=== PATIENT | female | born 1995 | race Caucasian/White ===

== ENCOUNTER → 2021-12-17 09:30 | Outpatient (BNVA) | payer SELFPAY | PROVIDERS: Visit Provider Physician Assistant | DX: Z02.1 Encounter for pre-employment examination (principal) ==

== ENCOUNTER 2024-08-27 09:42 | Outpatient (AMB) | payer OTHER, SELFPAY ==
--- NOTE | 2024-08-27 10:25 | A.OFFPC_ITS ---
Vital Signs 08/27/24 10:37 Height 5 ft 1.22 in Weight 102 lb 6 oz BMI 19.2 BP 90/64 Blood Pressure Location Rt brachial Position Sitting Respiration 12 Pulse 60 Pulse Source Pulse Oximeter Pulse Oximetry (%) 97 Oxygen Delivery Method Room Air Intake Visit Reasons: Est. Care Intake Note: New patient visit Director Dental Services Required: No Allergies amoxicillin Allergy (Unknown, Verified 08/27/24 10:29) Hives Tobacco use date assessed: 08/27/24 Dental Screening Dental Screen Date: 08/27/24 Did you have a dental visit in the last 12 months?: Yes Did you have a dental problem in the last 6 months where you did not have access to dental care?: No Was dental information given to patient?: Patient has dentist HPI HPI Comments History of Present Illness Details The patient is a 29-year-old female presenting with concerns of weight loss and anxiety. She is a new patient. She relocated from [facility] 3 years ago. She lives with her girlfriend and her 8-year-old son. Over the past two years, the patient has experienced a clinically significant weight loss from 146 pounds to a fluctuating weight of approximately 106 pounds. The patient endorsses a diminished appetite, requiring self-inducement to eat routine meals, which leads to irregular eating patterns. She has no dietary restrictions. She denies any related gastrointestinal symptoms such as nausea, abdominal pain, vomiting, or diarrhea and has no known family history of celiac disease or other significant gastrointestinal disorders. Menstrual periods are regular, once per month, lasting 3-5 days. She drinks alcohol once a week soci ally. She does not binge drink. She vapes, and she does not smoke marijuana or use illicit drugs. The patient also reports a longstanding history of anxiety, beginning in her late teenage years and describes episodes of intense anxiety and feeling overwhelmed which causes her to faint. These episodes involve symptoms of marked shakiness, tingling in her extremities and difficulty breathing and finally seeing black spots in her vision before she faints. While she reports the last syncope episode occurred approximately one year ago, she continues to experience near-daily sensations of heightened anxiety and stress. She endorses irritability, mental fatigue, difficulty staying asleep and also wonders if her appetite is related to this. 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 Patient says there is no specific 1 thing that makes her anxious. She always pictures the worse case scenarios happening on a daily basis. Her girlfriend is very supportive, and she has a good relationship with her son. She has never seen a therapist or been treated with anxiety medication. Though her PHQ-9 is positive, this is mostly related to her lack of sleep and fatigue, and she denies feeling depressed and denies SI or HI. Regarding syncopal episodes, patient had multiple ER visits reported in [place]. Patient fainted 1 time striking her head on a stone which resulted in a seizure, but she has no history of seizures otherwise. Patient says the only thing that came up as part of her workup was that she has a low heart rate in the 50s and 60s usually. Patient reports having CT scans, MRI of the head, echocardiogram, EKGs and consults with Cardiology and Neurology, and they told her that everything was okay. Patient was informed and verbally consented to the use of an ambient scribe for clinic note documentation during this visit. ROS: Constitutional: No fevers, chills or night sweats. +fatigue and weight loss as above. Eyes: No vision changes, blurry vision, double vision, eye pain, eye redness, eye discharge. Respiratory: No cough or shortness of breath (except during episodes described above) Cardiovascular: No chest pain, chest pressure or chest discomfort. No palpitations or pedal edema. Gastrointestinal: No anorexia, nausea, vomiting or diarrhea. No abdominal pain or blood in stool. No acid reflux. Genitourinary: No dysuria, hematuria, urinary frequency. Neurologic: No headache, unilateral weakness, ataxia, numbness or tingling in the extremities. No memory loss. See HPI. Hematologic/Lymphatics: No bleeding or bruising. No painful lymph nodes. Skin: No rash or itching. Endocrine: No cold or heat intolerance. No polyuria or polydipsia. Psychiatric: See HPI. Denies impulsivity and hallucinations. Physical exam: Constitutional: Alert, in no distress. Eyes: Pupils are equal, round and reactive to light. Extraocular muscles intact. Neck: Supple, Full range of motion. No lymphadenopathy. No palpable thyroid masses. Respiratory: Clear to auscultation. Cardiovascular: S1 S2 regular. No murmurs. Gastrointestinal: Abdomen soft, non-tender, non-distended. Normal bowel sounds. No palpable masses. Neurologic: No focal neurological deficits. Symmetric patellar reflexes. Moves all extremities spontaneously. Sensation intact bilaterally. Skin: No rashes Extremities: Warm and well perfused. No clubbing, cyanosis or edema. Symmetric peripheral pulses bilaterally. Psychiatric: Normal mood and affect [facility] Medical History (Updated 08/27/24 @ 11:38 by REINA Grewal) Sinus bradycardia Syncope Problems related to lack of adequate sleep Weight loss Anxiety Surgical History (Updated 08/27/24 @ 10:36 by Lila Moralez CMA) H/O section Family History Maternal Grandmother FH: mental illness Paternal Grandmother Diabetes Heart disease Paternal Grandfather Diabetes Heart disease Paternal Aunt Diabetes Paternal Uncle Diabetes Father Heart disease Social History (Updated 08/27/24 @ 10:33 by Lila Moralez CMA) Housing: Other ([facility]) Alcohol intake: current Patient Tobacco Use Status: Never used Tobacco e-Cigarette/Vaping Use: Currently Using (vaping 3 years) Second Hand Smoke Exposure: No Substance Use Type: Former Substance User and Marijuana service: No Current occupational status: employed Current occupation: Works with autistic adults Current occupational exposures/hazards: No Cognitive needs: No Hearing needs: No Vision needs: Yes (glasses) Questionnaire PHQ-9 Over the last 2 weeks, how often have you been bothered by any of the following problems? 1. Little interest or pleasure in doing things: not at all 2. Feeling down, depressed, or hopeless: several days 3. Trouble falling or staying asleep, or sleeping too much: more than half the days 4. Feeling tired or having little energy: nearly every day 5. Poor appetite or overeating: nearly every day 6. Feeling bad about yourself - or that you are a failure or have let yourself or your family down: nearly every day 7. Trouble concentrating on things, such as reading the newspaper or watching television: not at all 8. Moving or speaking so slowly that other people could have noticed. Or the opposite - being so fidgety or restless that you have been moving around a lot more than usual: not at all 9. Thoughts that you would be better off or of hurting yourself in some way: not at all Total score: 12 Depression Screening Interpretation: Positive Depression Screening Follow-up: Follow-up Visit Requested Depression Screening Done: Yes 47405 - PHQ-9 Billing: Yes Source: Developed by Drs. Derrell Duran, Tulio Jurado and colleagues, with an educational lona from [employer]. Thrive Questionnaire Date Thrive assessed: 08/27/24 I am a: Patient What is your living situation today?: I have a steady place to live Do you have trouble paying for medicines?: No Do you have trouble getting transportation to medical appointments?: No Do you have trouble paying your heating and electricity bill?: No Do you have trouble taking care of your child, family member or friend?: No Do you have trouble with day-to-day activities such as bathing, preparing meals, shopping, managing finances, etc.?: No Are you currently unemployed and looking for a job?: No Are you interested in more education?: No Please select the resources that you would like help with: None THRIVE Score: 0 AUDIT C Alcohol Use Questionnaire (AUDIT-C) 1. How often do you have a drink containing alcohol?: Monthly or less 2. How many drinks containing alcohol do you have on a typical day when you are drinking?: 1 or 2 3. How often do you have six or more drinks on one occasion?: Never Total Score: 1 VENKATA-7 AMB Questionnaire VENKATA-7 Date VENKATA - 7 assessed: 08/27/24 Feeling nervous, anxious, or on edge: 2 = More than half the days Not being able to stop or control worryin = Nearly every day Worrying too much about different things: 3 = Nearly every day Trouble relaxin = Several days Being so restless that it is hard to sit still: 0 = Not at all Becoming easily annoyed or irritable: 3 = Nearly every day Feeling afraid as if something awful might happen: 2 = More than half the days Total VENKATA-7 score (0-4 normal; 5-9 mild; 10-14 moderate; 15-21 severe): 14 Source: Developed by Drs. Derrell Duran, Tulio Jurado and colleagues, with an educational lona from [employer]. VENKATA-7 Assessment Billing VENKATA-7 Assessment Tool: VENKATA-7 Assessment 02243 Physical exam (Primary Care) Vital Signs: Last Vital Signs Resp 12 08/27/24 10:37 BP 90/64 08/27/24 10:37 BMI result Body Mass Index 19.2 Tobacco/Smoking Status: Tobacco use Status Tobacco use date assessed 08/27/24 08/27/24 10:28 Patient Tobacco Use Status Never used Tobacco 08/27/24 10:33 e-Cigarette/Vaping Use Currently Using (vaping 3 08/27/24 10:35 years) Depression Screening Interpretation: Positive Depression Screening Follow-up: Follow-up Visit Requested Thrive Assessment: Date of Thrive Assessment Date Thrive assessed 08/27/24 08/27/24 10:39 Office Procedures EKG Details: EKG shows sinus bradycardia with a ventricular rate of 51 beats per minute and no ischemic changes 20357-[id number], Complete Coding Level of Care Code New Pt Level 4 (80592) Complex EM visit Add On G2211 Diagnoses Anxiety F41.9 Weight loss R63.4 Problems related to lack of adequate sleep Z72.820 Syncope, unspecified syncope type R55 Syncope type: unspecified CPT Codes EKG - CPT: 18271-[id number], Complete ([id number]) Additional Codes VENKATA-7 Assessment Billing - VENKATA-7 Assessment Tool: VENKATA-7 Assessment 70257 ([id number]) PHQ-9 - 18578 - PHQ-9 Billing: Yes ([id number]) Assessment & Plan Assessment & Plan (1) Anxiety: Code(s): F41.9 - Anxiety disorder, unspecified Category: Medical (2) Weight loss: Code(s): R63.4 - Abnormal weight loss Category: Medical (3) Problems related to lack of adequate sleep: Code(s): Z72.820 - Sleep deprivation Category: Social Hx (4) Syncope: Code(s): R55 - Syncope and collapse Category: Medical Qualifiers: Syncope type: unspecified Qualified Code(s): R55 - Syncope and collapse Plan In summary this is a 29-year-old female with concerns of anxiety and weight loss. Her anxiety questionnaire and clinical history are suggestive of generalized anxiety disorder. Patient reports having extensive workup for syncopal episodes which are only brought on by severe anxiety and what sounds like panic attacks and vasovagal syncope. She reports weight loss with no GI symptoms which may also be related to VENKATA. We discussed this today. She would like to try therapy, and I referred her to Psychology. We briefly discussed medications. She would like to come back in a week to discuss anxiety medications further. She will also have lab work for evaluation of her symptoms. We will consider referral to Gastroenterology. 1. Weight loss: A comprehensive approach is essential to address the considerable weight loss and reduced appetite, including metabolic evaluations for thyroid and nutritional deficiencies, alongside dietary support and consideration of nutritional supplements. 2. Anxiety disorder with possible vasovagal syncope: A referral for mental health counseling is indicated to aid in managing anxiety that is likely contributing to vasovagal episodes. Exploration into pharmacological interventions for anxiety may be beneficial pending further discussions. 3. Syncope episodes: Monitoring continues as past evaluations showed normal results, with readiness to initiate new workup upon any change in frequency or type of occurrence. Advised patient to sign release for medical records. Follow up in 1 week to review labs. Orders: Orders Ferritin Today F41.9 - Anxiety disorder, unspecified, R63.4 - Abnormal weight loss, Z72.820 - Sleep deprivation Lipase Today F41.9 - Anxiety disorder, unspecified, R63.4 - Abnormal weight loss, Z72.820 - Sleep deprivation TSH reflex Free T4 Today F41.9 - Anxiety disorder, unspecified, R63.4 - Abnormal weight loss Endomysial IgA rflx Titer Today F41.9 - Anxiety disorder, unspecified, R55 - Syncope and collapse, R63.4 - Abnormal weight loss, Z72.820 - Sleep deprivation Immunoglobulin A Today F41.9 - Anxiety disorder, unspecified, R55 - Syncope and collapse, R63.4 - Abnormal weight loss, Z72.820 - Sleep deprivation Vitamin D 25-OH (D2 and D3) Today F41.9 - Anxiety disorder, unspecified, R55 - Syncope and collapse, R63.4 - Abnormal weight loss Vitamin B12 Today F41.9 - Anxiety disorder, unspecified, R63.4 - Abnormal weight loss, Z72.820 - Sleep deprivation, Z91.89 - Other specified personal risk factors, not elsewhere classified IRON PROFILE Today F41.9 - Anxiety disorder, unspecified, R63.4 - Abnormal weight loss, Z72.820 - Sleep deprivation Lipid Panel Today E78.5 - Hyperlipidemia, unspecified, F41.9 - Anxiety disorder, unspecified, R63.4 - Abnormal weight loss, Z72.820 - Sleep deprivation Comprehensive Met. Panel Today F41.9 - Anxiety disorder, unspecified, R63.4 - Abnormal weight loss, Z72.820 - Sleep deprivation Complete Blood Count Auto Diff Today F41.9 - Anxiety disorder, unspecified, R63.4 - Abnormal weight loss, Z72.820 - Sleep deprivation Amylase Today F41.9 - Anxiety disorder, unspecified, R63.4 - Abnormal weight loss, Z72.820 - Sleep deprivation AMB EKG-In Office Today R55 - Syncope and collapse Transglutaminase Ab IgG Today F41.9 - Anxiety disorder, unspecified, R55 - Syncope and collapse, R63.4 - Abnormal weight loss, Z72.820 - Sleep deprivation Referrals Psychology Referral F41.9 - Anxiety disorder, unspecified
[2024-08-27 10:37] VITALS: BP 90/64; PULSE 60; RESP 12; O2SAT 97; BMI 19.2
== END 2024-08-27 11:33 | disposition home or self-care (01) ==
LOC: HO.HMCFM 09:42
PROVIDERS: PCP Physician Assistant Medical; Visit Provider Physician Assistant Medical
DX: F41.9 Anxiety disorder, unspecified (principal); R63.4 Abnormal weight loss; Z72.820 Sleep deprivation; R55 Syncope and collapse

== ENCOUNTER → 2024-08-27 09:42 | Outpatient (BNVA) | payer OTHER, SELFPAY | PROVIDERS: PCP Physician Assistant Medical; Visit Provider Physician Assistant Medical | DX: F41.9 Anxiety disorder, unspecified (principal); R63.4 Abnormal weight loss; R55 Syncope and collapse; E78.5 Hyperlipidemia, unspecified; Z72.820 Sleep deprivation | CPT/HCPCS: 93005; 96127; 99202 ==

== ENCOUNTER 2024-08-28 08:12 | Outpatient (REF) | payer OTHER, SELFPAY ==
[2024-08-28 11:22] LABS: MANUAL DIFF FLAG NO
[2024-08-28 11:31] LABS: Basophils Percent Auto 0.4 % (0-2); Eosinophils Absolute Auto 0.2 X10*3/uL (0.0-0.4); Eosinophils Percent Auto 2.9 % (0-4); Hematocrit 39.3 % (37.0-47.0); Hemoglobin 13.4 g/dl (12.0-16.0); Imm Gran Abs Auto 0.02 X10*3/uL (0.00-0.03); Imm Gran Pct Auto 0.4 % (0.0-0.4); Lymphocytes Absolute Auto 1.7 X10*3/uL (1.2-4.9); Lymphocytes Percent Auto 31.8 % (20-40); Mean Corpuscular HGB Conc 34.1 g/dl (31.0-35.0); Mean Corpuscular Volume 87.9 fL (80.0-98.0); Mean Platelet Volume 9.7 fL (9.4-12.3); Monocytes Absolute Auto 0.3 X10*3/uL (0.1-1.2); Monocytes Percent Auto 5.9 % (2-11); Neutrophils Absolute Auto 3.2 x10*3/uL (2.0-8.3); Neutrophils Percent Auto 58.6 % (45-73); Platelet Count 362 X10*3/uL (160-400); Red Blood Count 4.47 X10*6/uL (4.20-5.50); Red Cell Distribution Width 12.3 % (11.0-16.0); White Blood Count 5.4 X10*3/uL (4.8-10.8)
[2024-08-28 12:24] LABS: Vitamin B12 778 pg/mL (200-900)
[2024-08-28 12:30] LABS: Alanine Aminotransferase 10 U/L (0-31); Albumin Level 4.3 g/dL (3.5-5.0); Alkaline Phosphatase 61 U/L (39-117); Amylase 55 U/L (28-100); Anion Gap 9 (12-20); Aspartate Amino Transferase 24 U/L (5-31); Bilirubin Total 0.6 mg/dL (0.0-1.0); Blood Urea Nitrogen 13 mg/dL (9-16); Calcium 9.2 mg/dL (8.4-10.2); Carbon Dioxide 26 mmol/L (22-29); Chloride 108 mmol/L (96-108); Cholesterol 129 mg/dL (<200); Estimated Glomerular Filt Rate > 60; Ferritin 110 ng/mL (10-122); Glucose Random 76 mg/dL (60-115); HDL Cholesterol 46 mg/dL (>40); Iron 82 mcg/dL (30-160); LDL Cholesterol Calculated 74 mg/dL (<100); Lipase 16 U/L (8-78); Percent Iron Saturation 35 % (15-50); Potassium 3.8 mmol/L (3.3-5.1); Sodium 139 mmol/L (135-145); Total Iron Binding Capacity 237 mcg/dL (228-428); Total Protein 7.7 g/dL (6.5-8.0); Triglycerides 47 mg/dL (<150); Unsaturated Iron Binding 155 ug/dL
[2024-08-29 09:08] LABS: Immunoglobulin A 419 mg/dL (47-310)
[2024-08-29 21:43] LABS: Transglutaminase Ab IgG <1.0 U/mL
[2024-08-31 22:19] LABS: Endomysial IgA Antibody Negative (Negative)
[2024-09-01 15:34] LABS: Vitamin D 25-OH, D2 <4 ng/mL; Vitamin D 25-OH, D3 15 ng/mL; Vitamin D 25-OH, Total 15 ng/mL (30-100)
== END 2024-08-28 08:13 | disposition home or self-care (01) ==
LOC: HO.WFDLDS 08:12
PROVIDERS: Visit Provider Physician Assistant Medical
DX: R63.4 Abnormal weight loss (principal)
CPT/HCPCS: 36415; 80053; 80061; 82150; 82306; 82607; 82728; 82784; 83540; 83690; 84443; 85025; 86231; 86364

== ENCOUNTER 2024-09-06 09:02 | Outpatient (AMB) | payer OTHER, SELFPAY ==
--- NOTE | 2024-09-06 10:14 | MHC.PC.OV ---
Vital Signs 09/06/24 10:21 Height 5 ft 1 in Weight 104 lb 4 oz BMI 19.7 BP 100/62 Blood Pressure Location Rt brachial Position Sitting Respiration 12 Pulse 64 Pulse Source Pulse Oximeter Pulse Oximetry (%) 98 Intake Visit Reasons: follow up labs Intake Note: Tesha presents in the office today to go over her lab results. [employer] Required: No Allergies amoxicillin Allergy (Unknown, Verified 09/06/24 10:17) Hives Tobacco use date assessed: 09/06/24 Dental Screening Dental Screen Date: 09/06/24 Did you have a dental visit in the last 12 months?: Yes Did you have a dental problem in the last 6 months where you did not have access to dental care?: Yes Was dental information given to patient?: Patient has dentist HPI HPI Comments History of Present Illness Details The patient is a 29-year-old female presenting with concerns of weight loss and anxiety. She is a new patient. She relocated from [facility] 3 years ago. She lives with her girlfriend and her 8-year-old son. Over the past two years, the patient has experienced a clinically significant weight loss from 146 pounds to a fluctuating weight of approximately 106 pounds. The patient endorsses a diminished appetite, requiring self-inducement to eat routine meals, which leads to irregular eating patterns. She has no dietary restrictions. She denies any related gastrointestinal symptoms such as nausea, abdominal pain, vomiting, or diarrhea and has no known family history of celiac disease or other significant gastrointestinal disorders. Menstrual periods are regular, once per month, lasting 3-5 days. She drinks alcohol once a week socially. She does not binge drink. She vapes, and she does not smoke marijuana or use illicit drugs. This is a 29-year-old female who returns to review lab results. She relocated from [facility] 3 years ago. She lives with her and 8-year-old son. We discussed clinically significant weight lost from 146 lb to fluctuating weight of approximately 106 lb over the past 2 years. She endorsed diminished appetite requiring self induced went to eat routine meals with irregular eating patterns. She denied dietary restrictions. She denied any related gastrointestinal symptoms like nausea, abdominal pain, vomiting, diarrhea, and she had no known family history of gastrointestinal disorders or cancer. She reported menstrual cycles were regular lasting 3-5 days every month. She reported drinking alcohol once a week socially. She vapes, and she does not smoke marijuana or use illicit drugs. We reviewed her blood work from 08/28/2024 including a normal CBC with differential, normal CMP, normal lipid profile, normal pancreatic enzymes, B12 and TSH level. Tissue transglutaminase IgG and endomysial IgA antibody were negative/normal. Her serum IgA level is elevated at 419. Her vitamin-D level is deficient at 15. There is no known family history of autoimmune disease. She does not report frequent infections. She continues to endorse a longstanding history of anxiety beginning in her late teenage years described as episodes of anxiety and feeling overwhelmed. She endorsed syncopal episodes which were previously evaluated by Cardiology and Neurology while living in [place] and were always brought on by stress and anxiety. She endorses irritability, mental fatigue, difficulty staying asleep and also wonders if her appetite is related to this. 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 Patient says there is no specific 1 thing that makes her anxious. She always pictures the worse case scenarios happening on a daily basis. Her PHQ-9 was also positive for depression. She continues to deny SI/HI. She has an appointment with a therapist next week for an initial visit. She is interested in starting medication. ROS: Constitutional: No fevers, chills or night sweats. +fatigue and weight loss as above. Eyes: No vision changes, blurry vision, double vision, eye pain, eye redness, eye discharge. Respiratory: No cough or shortness of breath Cardiovascular: No chest pain, chest pressure or chest discomfort. No palpitations or pedal edema. Gastrointestinal: No anorexia, nausea, vomiting or diarrhea. No abdominal pain or blood in stool. No acid reflux. Genitourinary: No dysuria, hematuria, urinary frequency. Neurologic: No headache, unilateral weakness, ataxia, numbness or tingling in the extremities. No memory loss. Hematologic/Lymphatics: No bleeding or bruising. No painful lymph nodes. Skin: No rash or itching. Endocrine: No cold or heat intolerance. No polyuria or polydipsia. Psychiatric: See HPI. Denies impulsivity and hallucinations. Physical exam: Constitutional: Alert, in no distress. Eyes: Pupils are equal, round and reactive to light. Extraocular muscles intact. Neck: Supple, Full range of motion. No lymphadenopathy. No palpable thyroid masses. Respiratory: Clear to auscultation. Cardiovascular: S1 S2 regular. No murmurs. Gastrointestinal: Abdomen soft, non-tender, non-distended. Normal bowel sounds. No palpable masses. [facility] Medical History (Updated 09/06/24 @ 10:51 by REINA Grewal) High total serum IgA Anxiety and depression Vitamin D deficiency Sinus bradycardia Syncope Problems related to lack of adequate sleep Weight loss Anxiety Surgical History H/O section Family History Maternal Grandmother FH: mental illness Paternal Grandmother Diabetes Heart disease Paternal Grandfather Diabetes Heart disease Paternal Aunt Diabetes Paternal Uncle Diabetes Father Heart disease Social History [facility]: [facility] Housing Other:: [facility] Alcohol intake: current Patient Tobacco Use Status: Never used Tobacco e-Cigarette/Vaping Use: Currently Using (vaping 3 years) Second Hand Smoke Exposure: No Substance Use Type: Former Substance User and Marijuana service: No Current occupational status: employed Current occupation: Works with autistic adults Current occupational exposures/hazards: No Cognitive needs: No Hearing needs: No Vision needs: Yes (glasses) Questionnaire PHQ-9 Over the last 2 weeks, how often have you been bothered by any of the following problems? 1. Little interest or pleasure in doing things: several days 2. Feeling down, depressed, or hopeless: not at all 3. Trouble falling or staying asleep, or sleeping too much: nearly every day 4. Feeling tired or having little energy: nearly every day 5. Poor appetite or overeating: nearly every day 6. Feeling bad about yourself - or that you are a failure or have let yourself or your family down: several days 7. Trouble concentrating on things, such as reading the newspaper or watching television: not at all 8. Moving or speaking so slowly that other people could have noticed. Or the opposite - being so fidgety or restless that you have been moving around a lot more than usual: more than half the days 9. Thoughts that you would be better off or of hurting yourself in some way: not at all Total score: 13 Depression Screening Interpretation: Positive Depression Screening Follow-up: In treatment and New Medication prescribed Depression Screening Done: Yes 53264 - PHQ-9 Billing: Patient declined-do not bill Source: Developed by Drs. Derrell Duran, Tulio Jurado and colleagues, with an educational lona from [employer]. Thrive Questionnaire Date Thrive assessed: 09/06/24 I am a: Patient What is your living situation today?: I have a steady place to live Within the past 12 months, did the food you bought not last and you didn't have the money to get more?: Never true Within the past 12 months, did you worry whether your food would run out before you got money to buy more?: Never true Do you have trouble paying for medicines?: No Do you have trouble getting transportation to medical appointments?: No Do you have trouble paying your heating and electricity bill?: No Do you have trouble taking care of your child, family member or friend?: No Do you have trouble with day-to-day activities such as bathing, preparing meals, shopping, managing finances, etc.?: No Are you currently unemployed and looking for a job?: No Are you interested in more education?: No Please select the resources that you would like help with: None Currently or been in a relationship where the following occur: No concerns reported THRIVE Score: 0 VENKATA-7 AMB Questionnaire VENKATA-7 Date VENKATA - 7 assessed: 09/06/24 Feeling nervous, anxious, or on edge: 3 = Nearly every day Not being able to stop or control worryin = Nearly every day Worrying too much about different things: 3 = Nearly every day Trouble relaxin = Nearly every day Being so restless that it is hard to sit still: 3 = Nearly every day Becoming easily annoyed or irritable: 3 = Nearly every day Feeling afraid as if something awful might happen: 3 = Nearly every day Total VENKATA-7 score (0-4 normal; 5-9 mild; 10-14 moderate; 15-21 severe): 21 Source: Developed by Drs. Derrell Duran, Tulio Jurado and colleagues, with an educational lona from [employer]. VENKATA-7 Assessment Billing VENKATA-7 Assessment Tool: VENKATA-7 Assessment 66312 Physical exam (Primary Care) Vital Signs: Last Vital Signs Pulse 64 09/06/24 10:21 Resp 12 09/06/24 10:21 BP 100/62 09/06/24 10:21 Pulse Ox 98 09/06/24 10:21 BMI result Body Mass Index 19.7 Tobacco/Smoking Status: Tobacco use Status Tobacco use date assessed 09/06/24 09/06/24 10:28 Patient Tobacco Use Status Never used Tobacco 09/06/24 10:28 e-Cigarette/Vaping Use Currently Using (vaping 3 09/06/24 10:28 years) PHQ-9: PHQ-9 Score PHQ-9: Total score 13 09/06/24 10:58 Depression Screening Interpretation: Positive Depression Screening Follow-up: In treatment and New Medication prescribed Thrive Assessment: Date of Thrive Assessment Date Thrive assessed 09/06/24 09/06/24 10:28 Currently or been in a relationship where the following occur: No concerns reported Coding Level of Care Code Est Pt Level 4 (79084) Complex EM visit Add On G2211 Diagnoses High total serum IgA R76.8 Anxiety and depression F41.9; F32.A Vitamin D deficiency E55.9 Weight loss R63.4 Additional Codes VENKATA-7 Assessment Billing - VENKATA-7 Assessment Tool: VENKATA-7 Assessment 22932 ([id number]) Assessment & Plan Assessment & Plan (1) High total serum IgA: Code(s): R76.8 - Other specified abnormal immunological findings in serum Category: Medical (2) Anxiety and depression: Code(s): F41.9 - Anxiety disorder, unspecified; F32.A - Depression, unspecified Category: Medical (3) Vitamin D deficiency: Code(s): E55.9 - Vitamin D deficiency, unspecified Category: Medical (4) Weight loss: Code(s): R63.4 - Abnormal weight loss Category: Medical Plan The patient is starting therapy next week. She will start Lexapro 5 mg for a week and then increase to 10 mg if tolerating this. Reviewed administration, side effects and black box warning. We discussed it may take 4-6 weeks to feel the full effects of the medication. She will contact the office if she has any difficulty with it. We discussed the need to titrate the medication based on efficacy and tolerability. Patient also brought up a concern about attention and wondering if she could possibly have ADHD. Refer to Psychiatry for further evaluation. We discussed high IgA level. She has no evidence of renal or liver dysfunction, and her blood count is normal. She will return for additional blood work-see detailed lab list below. Patient accepts plan. Patient is referred to Gastroenterology for weight loss. This could be a symptom of anxiety and depression. Start vitamin D3 21654 IU weekly. Rechecked D3 in 8 weeks. She will follow up with me in 6 weeks. Orders: Orders Vitamin D 25-OH (D2 and D3) Today E55.9 - Vitamin D deficiency, unspecified Lactate Dehydrogenase Today R76.8 - Other specified abnormal immunological findings in serum Rheumatoid Factor Today R76.8 - Other specified abnormal immunological findings in serum Hepatitis A,B,C Profile Today R63.4 - Abnormal weight loss, R76.8 - Other specified abnormal immunological findings in serum Immunoglobulins,IgG IgA IgM Today R76.8 - Other specified abnormal immunological findings in serum, R77.8 - Other specified abnormalities of plasma proteins JANKI Reflex Titer and Pattern Today R76.8 - Other specified abnormal immunological findings in serum Erythrocyte Sedimentation Rate Today R76.8 - Other specified abnormal immunological findings in serum HIV Ab/Ag Today R63.4 - Abnormal weight loss, R76.8 - Other specified abnormal immunological findings in serum, Z20.2 - Contact with and (suspected) exposure to infections with a predominantly sexual mode of transmission Hepatitis A IgM Today R76.8 - Other specified abnormal immunological findings in serum Referrals Gastroenterology Referral R63.4 - Abnormal weight loss Psychiatry Outpatient Consultation Service F32.A - Depression, unspecified, F41.9 - Anxiety disorder, unspecified Medications: New cholecalciferol (vitamin D3) 1,250 mcg PO QWEEK 12 caps 0RF 12 weeks escitalopram oxalate orally daily; Take 1/2 tablet po daily for a week then increase to 1 tab po daily. 90 tabs 0RF
[2024-09-06 10:21] VITALS: BP 100/62; PULSE 64; RESP 12; O2SAT 98; BMI 19.7
== END 2024-09-06 10:54 | disposition home or self-care (01) ==
LOC: HO.HMCFM 09:03
PROVIDERS: PCP Physician Assistant Medical; Visit Provider Physician Assistant Medical
DX: R76.8 Other specified abnormal immunological findings in serum (principal); F41.9 Anxiety disorder, unspecified; F32.A Depression, unspecified; E55.9 Vitamin D deficiency, unspecified; R63.4 Abnormal weight loss

== ENCOUNTER → 2024-09-06 09:02 | Outpatient (BNVA) | payer OTHER, SELFPAY | PROVIDERS: PCP Physician Assistant Medical; Visit Provider Physician Assistant Medical | DX: R76.8 Other specified abnormal immunological findings in serum (principal); F41.9 Anxiety disorder, unspecified; F32.A Depression, unspecified; E55.9 Vitamin D deficiency, unspecified; R63.4 Abnormal weight loss | CPT/HCPCS: 96127; 99212 ==